=== PATIENT | female | born 1970 | race Caucasian/White ===

== ENCOUNTER → 2020-04-29 | Outpatient (CLI) | payer BC, OTHER ==
[~2020-04-29] MED LIST: BUSPIRONE HCL30 MG PO; CELECOXIB100 MG PO; COLACE 100MG C100 MG PO; HYDROCODON-ACE1 EAC4 PO; IBUPROFEN800 MG PO; METHOCARBAMOL500 MG PO; PRINIVIL20 MG PO; VIIBRYD40 MG PO; WELLBUTRIN XL300 M1 PO
[2020-04-29 09:56] LABS: HEMOGLOBIN 12.3 gm/dl (12.3-15.3); RED BLOOD COUNT 4.39 M/UL (4.00-5.10); WHITE BLOOD COUNT 10.2 K/UL (4.5-11.0)
== END ==
LOC: OPSV2 08:00
PROVIDERS: Obstetrics & Gynecology
DX: Z01.818 Encounter for other preprocedural examination (principal); N93.9 Abnormal uterine and vaginal bleeding, unspecified; Z20.822 Contact with and (suspected) exposure to COVID-19
CPT/HCPCS: 36415; 81001; 85025; U0003

== ENCOUNTER → 2020-05-03 | Day surgery (SDC) | payer BC, OTHER | END | disposition home or self-care (01) | LOC: OR 08:00 | DX: N84.0 Polyp of corpus uteri (principal); N88.2 Stricture and stenosis of cervix uteri; I10 Essential (primary) hypertension; F41.9 Anxiety disorder, unspecified; F32.9 Major depressive disorder, single episode, unspecified; G25.81 Restless legs syndrome; Z79.899 Other long term (current) drug therapy | CPT/HCPCS: 84703; J1100; J1885; J2001; J2250; J2405; J2704; J2795; J3010; J7030; J7120 ==